=== PATIENT | male | born 1955 | race Caucasian/White ===

== ENCOUNTER 2018-12-22 22:20 | Inpatient (IN) ==
[2018-12-22] MEDS ORDERED: DiphenhydrAMINE HCL 50 MG/ML VIAL IV STA (22:42)
[2018-12-22] MEDS ORDERED: METOCLOPRAMIDE HCL INJ 5 MG/ML 2 ML VIAL IV STA (22:42)
[2018-12-22] MEDS ORDERED: SODIUM CHLORIDE 0.9% 1000ML 1,000 ML IV SCH (22:45)
[2018-12-22 23:10] LABS: Basophils # (auto) 0.01 K/uL (0-0.2); Eosinophils # (auto) 0.01 K/uL (0-0.5); Hematocrit (blood only) 46.7 % (42-52); Hemoglobin 16.6 g/dL (14.0-18.0); Immature Granulocytes # (auto) 0.08 K/uL (0.00-0.02); Immature Granulocytes % (auto) 0.4 %; Lymphocytes % (auto) 3.2 %; Mean Corpuscular Hgb Conc 35.5 g/dL (32-36); Mean Corpuscular Volume 87.9 fL (80-100); Mean Platelet Volume 10.3 fL (7.4-10.4); Monocytes # (auto) 0.97 K/uL (0.11-0.59); Monocytes % (auto) 4.5 %; Neutrophils % (auto) 91.9 %; Platelet Count 222 K/uL (130-400); RDW Coefficient of Variation 12.6 % (11.5-14.5); RDW Standard Deviation 40.3 fL (36.4-46.3); Red Blood Count 5.31 M/uL (4.7-6.1); White Blood Count 21.57 K/uL (4.8-10.8)
--- NOTE | 2018-12-22 23:13 | Emergency Department Note ---
History of Present Illness General Chief complaint: Abdominal Pain Stated complaint: STOMACH CRAMPS History of Present Illness Maximum Pain Intensity: 8 This 63-year-old presents to the ER complaining of abdominal pain with nausea and loose stool for the past few days Location: Abdomen Quality: Crampy Severity: Moderate Duration: Past few days Timing: Started a few days ago Context: Symptoms got worse and patient came in Modifying factors: better with nothing; worse with palpation Patient states he is also felt lightheaded and nearly passed out. He does not routinely see a doctor. He does smoke marijuana for his chronic back pain and has a marijuana medical card. Patient is not on well water. No recent antibiotics. Patient denies chest pain, dyspnea, cough, congestion, urinary symptoms. He does complain of subjective fever and chills. Home Medications Home Medications Medication Instructions Recorded Confirmed Type No Known Home Medications 12/22/18 12/22/18 History Allergies Allergy/AdvReac Type Severity Reaction Status Date / Time No Known Allergies Allergy Unverified 12/22/18 22:55 Past Med/Surg History Medical History Back pain Social History Feels Safe at Home: Yes Smoking Status: Former smoker Hx Substance Use: Yes substance use type: marijuana Review of Systems All systems reviewed & are unremarkable except as noted in HPI & below Physical Exam Vital Signs Vital Signs - 24 hr 12/22/18 22:34 12/22/18 23:01 12/22/18 23:13 Temperature 36.5 C Temperature Source Oral Sepsis Action Taken by Nursing No Action Required Pulse Rate 110 H Pulse Rate [Apical] 84 Respiratory Rate 20 18 Respiratory Effort / Characteristics Non-Labored Spontaneous Non-Labored Respiratory Depth Normal Normal Blood Pressure 116/78 Blood Pressure [Right Arm] 120/79 Blood Pressure Mean 90 Blood Pressure Mean [Right Arm] 92 Blood Pressure Position [Right Arm] Lying Pulse Oximetry 98 95 Oxygen Delivery Method Room Air Room Air Room Air VITALS: Vitals are noted on the nurse's note and reviewed by myself. Vital signs stable. GENERAL: White male, in no acute distress, nondiaphoretic, well-developed well- nourished. SKIN: The skin was without rashes, erythema, edema, or bruising. There is no tenting of the skin. Capillary reflex less than 2 seconds. HEAD: Normocephalic atraumatic. EARS: External auditory canals clear, tympanic membranes pearly mallory without erythema or effusion bilaterally. EYES: Pupils equal round and reactive to light and accommodation. Conjunctivae without injection, sclerae without icterus. Extraocular movements intact. NOSE: Patent, turbinates without inflammation or discharge. MOUTH: Mucous membranes moist. Pharynx without erythema or exudate. Uvula midline. Airway patent. Tongue does not deviate. NECK: Supple without nuchal rigidity. No lymphadenopathy. No thyromegaly. Cervical spine is nontender. No JVD. HEART: Regular rate and rhythm without murmurs gallops or rubs. LUNGS: Clear to auscultation bilaterally without wheezes, rales or rhonchi. No retractions or accessory muscle use. ABDOMEN: Positive bowel sounds x 4. Normal tympanic percussion. Soft, diffusely tender to palpation with increased pain in the lower abdomen, without masses or organomegaly. Powers sign negative. No guarding or rebound tenderness. No CVA tenderness MUSCULOSKELETAL: No muscle atrophy, erythema, or edema noted. NEURO: Patient was alert and oriented to person place and time. Normal sensation to light and sharp touch. No focal neurological deficits. Course Administered Medications Cefoxitin Sodium (Mefoxin) 2,000 mg in 60 mls @ 100 mls/hr IV NOW STA Stop: 12/23/18 00:58 Last Admin: 12/23/18 00:43 Dose: 100 mls/hr Documented by: [id number] Ioversol (Optiray 320 100ml) 93 ml IV ONCE PRN PRN Reason: Interaction Checking Stop: 12/26/18 23:33 Last Admin: 12/22/18 23:34 Dose: 1 ml Documented by: [id number] Discontinued Medications Diphenhydramine HCl (Benadryl) 25 mg IV NOW STA Stop: 12/22/18 22:43 Last Admin: 12/22/18 23:03 Dose: 25 mg Documented by: [id number] Sodium Chloride (Nss 1000ml) 1,000 mls @ 999 mls/hr IV .Q1H1M RAFAEL Stop: 12/22/18 23:45 Last Infusion: 12/23/18 00:43 Dose: 0 mls/hr Documented by: [id number] Admin: 12/22/18 23:03 Dose: 999 mls/hr Documented by: [id number] Metoclopramide HCl (Reglan) 10 mg IV NOW STA Stop: 12/22/18 22:43 Last Admin: 12/22/18 23:03 Dose: 10 mg Documented by: [id number] Medical Decision Making Medical Records Attestation: I reviewed the patient's medical records. Home Medications Current Medication List: was personally reviewed by me Laboratory Data Attestation: I reviewed the patient's lab results. Result diagrams: 12/22/18 22:56 12/22/18 22:56 Lab Results 12/22/18 12/22/18 Range/Units 22:56 22:56 WBC 21.57 H (4.8-10.8) K/uL RBC 5.31 (4.7-6.1) M/uL Hgb 16.6 (14.0-18.0) g/dL Hct 46.7 (42-52) % MCV 87.9 (80-100) fL MCH 31.3 (25-34) pg MCHC 35.5 (32-36) g/dL RDW Std Deviation 40.3 (36.4-46.3) fL RDW Coeff of [place] 12.6 (11.5-14.5) % Plt Count 222 (130-400) K/uL MPV 10.3 (7.4-10.4) fL Immature Gran % (Auto) 0.4 % Neut % (Auto) 91.9 % Lymph % (Auto) 3.2 % [place] % (Auto) 4.5 % Eos % (Auto) 0.0 % Baso % (Auto) 0.0 % Immature Gran # (Auto) 0.08 H (0.00-0.02) K/uL Neut # (Auto) 19.80 H (1.4-6.5) K/uL Lymph # (Auto) 0.70 L (1.2-3.4) K/uL [place] # (Auto) 0.97 H (0.11-0.59) K/uL Eos # (Auto) 0.01 (0-0.5) K/uL Baso # (Auto) 0.01 (0-0.2) K/uL Sodium 132 L (136-145) mmol/L Potassium 3.9 (3.5-5.1) mmol/L Chloride 99 (98-107) mmol/L Carbon Dioxide 23 (21-32) mmol/L Anion Gap 10.0 (3-11) BUN 31 H (7-18) mg/dl Creatinine 1.30 (0.6-1.4) mg/dl Est Cr Clr Drug Dosing 61.6 ml/min Est GFR ( Amer) 68.3 Est GFR (Non-Af Amer) 58.9 BUN/Creatinine Ratio 23.6 H (10-20) Glucose 141 H (70-99) mg/dl Calcium 10.0 (8.5-10.1) mg/dl Magnesium 2.3 (1.8-2.4) mg/dl Total Bilirubin 1.8 H (0.2-1) mg/dl AST 12 L (15-37) U/L ALT 20 (12-78) U/L Alkaline Phosphatase 84 (45-117) U/L Troponin I < 0.015 (0-0.045) ng/ml Total Protein 8.3 H (6.4-8.2) gm/dl Albumin 3.4 (3.4-5.0) gm/dl Globulin 4.9 H (2.5-4.0) gm/dl Albumin/Globulin Ratio 0.7 L (0.9-2) Lipase 51 L (73-393) U/L Imaging Data Attestation: I personally reviewed and interpreted this imaging study as follows: MDM Narrative Prior records/ancillary studies reviewed. Triage Nursing notes reviewed. The patient's history was concerning for abdominal pain. Differential diagnosis: Etiologies such as appendicitis, diverticulitis, PUD, biliary pathology, UTI, pancreatitis, obstruction, mesenteric ischemia, aortic pathology, infections, inflammatory bowel disease, renal colic, as well as others were entertained. Physical examination findings: As above. ER treatment provided: IV fluids, Reglan, Benadryl On reassessment the patient felt better. Diagnostics interpreted by me: ECG: Normal sinus, normal intervals, no acute ST-T wave changes. Impression normal sinus rhythm interpreted myself I think arrhythmia is unlikely. EKG shows normal sinus rhythm with no interval abnormalities such as QT prolongation or WPW. There are no findings to suggest B rugada syndrome. Cardiac monitoring in the emergency department reveals no tachycardic or bradycardic dysrhythmia. Hypertrophic cardiomyopathy was considered but there are no clear historical elements pointing toward this. EKG is not suggestive. The QRS voltage is not extremely large and there are no suggestive Q waves. The labs revealed leukocytosis, hyperglycemia without DKA Imaging studies: CT ABDOMEN & PELVIS With Contrast: Acute appendicitis. Appendix measures greater than 1 cm. No free fluid, free air, or abscess. Dilated small bowel with air-fluid levels. Distal small bowel and colon are decompressed. Cannot exclude small bowel obstruction. Radiologist: Osman Schroeder MD Chest x-ray with no acute consolidation, pneumothorax or free air per my interpretation Consultation: A consultation was placed with the Dr. Crowe. The case was discussed and diagnostics were reviewed. The patient was evaluated in the ER for further treatment. Exam and history seem consistent with acute appendicitis. Patient started antibiotics. Surgery was consulted. Patient agrees to treatment plan of admission. Patient placed n.p.o. By the evaluation outlined above emergent etiologies such as diverticulitis, PUD, biliary pathology, UTI, pancreatitis, obstruction, mesenteric ischemia, aortic pathology, inflammatory bowel disease, renal colic, as well as others were deemed relatively unlikely. The pt informed about the findings as listed above. All questions were answered and pleased with the treatment. Case reviewed with my attending The chart was completed utilizing [email or web address] Speech voice recognition software. Grammatical errors, random word insertions, pronoun errors, and incomplete sentences are an occassional consequence of this system due to software limit ations, ambient noise, and hardware issues. Any formal questions or concerns about the content, text, or information contained within the body of this dictation should be directly addressed to the physician cleaner assistant for clarification. Impression & Plan Acute appendicitis Discharge Plan Visit Data Chief Complaint: Abdominal Pain Stated Complaint: STOMACH CRAMPS ED Provider: Tre Jaffe ED Midlevel Provider: Jazzmine Rodríguez Discharge Problem: Acute appendicitis Patient Disposition: Being Evaluated by Surgeon Condition: Fair Forms Stand Alone Forms: Call Back Authorization, [facility] [employer] Prescriptions Prescriptions: No Action No Known Home Medications RF: 0 Referrals Referrals: PCP,NO [Primary Care Provider] - Discharge Problem: Acute appendicitis Qualifiers: Acute appendicitis type: with generalized peritonitis Appendicitis gangrene presence: unspecified whether gangrene present Appendicitis perforation presence: unspecified whether perforation present Appendicitis abscess presence: unspecified whether abscess present Qualified Code(s): K35.20 - Acute appendicitis with generalized peritonitis, without abscess
[2018-12-22 23:30] LABS: Alanine Aminotransferase 20 U/L (12-78); Albumin Level 3.4 gm/dl (3.4-5.0); Aspartate Aminotransferase 12 U/L (15-37); BUN Creatinine Ratio 23.6 (10-20); Blood Urea Nitrogen 31 mg/dl (7-18); Carbon Dioxide 23 mmol/L (21-32); Chloride 99 mmol/L (98-107); Creatinine Clr Calc Pharmacy 61.6 ml/min; Est GFR (African American) 68.3; Est GFR (Non-African American) 58.9; Glucose 141 mg/dl (70-99); Magnesium 2.3 mg/dl (1.8-2.4); Potassium 3.9 mmol/L (3.5-5.1); Sodium 132 mmol/L (136-145)
[2018-12-22 23:34] LABS: Albumin Globulin Ratio 0.7 (0.9-2); Alkaline Phosphatase 84 U/L (45-117); Bilirubin,Total 1.8 mg/dl (0.2-1); Globulin 4.9 gm/dl (2.5-4.0); Total Protein 8.3 gm/dl (6.4-8.2); Troponin I < 0.015 ng/ml (0-0.045)
[2018-12-22] MEDS ORDERED: IOVERSOL 100ml IV PRN (23:34)
[2018-12-23] MEDS ORDERED: cefOXitin 2,000 MG/60 ML BAG IV STA (00:23)
--- NOTE | 2018-12-23 00:51 | History & Physical Report ---
Date of Service December 23, 2018 Assessment & Plan (1) Acute appendicitis: Patient with acute appendicitis. Discussed laparoscopic appendectomy Possible open appendectomy with the patient he does understand and does Wish to proceed. Acute appendicitis type: with generalized peritonitis Appendicitis abscess presence: unspecified whether abscess present Appendicitis gangrene presence: unspecified whether gangrene present Appendicitis perforation presence: unspecified whether perforation present Qualified Code(s): K35.20 - Acute appendicitis with generalized peritonitis, without abscess History of Present Illness Primary Care Provider: NO PCP Patient is a 63-year-old male presenting to the emergency room with abdominal pain. Is found with an elevated white blood cell count of 21,000 and CAT scan evidence Of acute appendicitis. Does not appear to have ruptured or show evidence of an abscess. Allergies Allergy/AdvReac Type Severity Reaction Status Date / Time No Known Allergies Allergy Unverified 12/22/18 22:55 Home Medications Home Medications Medication Instructions Recorded Confirmed Type No Known Home Medications 12/22/18 12/22/18 History Past Med/Surg History Medical History Back pain Social History Feels Safe at Home: Yes Smoking Status: Former smoker Hx Substance Use: Yes substance use type: marijuana Review of Systems All systems reviewed & are unremarkable except as noted in HPI & below Physical Exam Vital Signs (Past 24 Hours): Last Vital Signs Temp 36.5 C 12/22/18 22:34 Pulse 84 12/22/18 23:13 Resp 18 12/22/18 23:13 BP 120/79 12/22/18 23:13 Pulse Ox 95 12/22/18 23:13 His head is atraumatic conjunctiva are anicteric neck is supple his skin shows no rashes he has no evidence of respiratory distress his heart shows regular rate and rhythm. His abdomen is soft with right lower quadrant tenderness to palpation. His extremities are warm and well-perfused. Results & Data Diagnostic Findings I have reviewed his CAT scan
[2018-12-23] MEDS ORDERED: HYDROmorphone INJ 2 MG/ML SYR/VIAL IV PRN (01:41)
[2018-12-23] MEDS ORDERED: fentaNYL citrate 100 MCG/2 ML VIAL IV PRN (01:41)
[2018-12-23] MEDS ORDERED: ePHEDrine sulfate 50 MG/ML AMP IV PRN (01:41)
[2018-12-23] MEDS ORDERED: PROMETHAZINE HCL 6.25 MG in SODIUM CHLORIDE 0.9% 50 ML IV PRN (01:41)
[2018-12-23] MEDS ORDERED: ONDANSETRON INJ 2 MG/ML 2 ML VIAL IV PRN ×2 (01:41→04:21)
[2018-12-23] MEDS ORDERED: ATROPINE SULFATE 0.1 MG/ML 10ML SYR IV PRN (01:41)
[2018-12-23] MEDS ORDERED: BUPIVACAINE 0.5 % 5 MG/1 ML MPF 30ML VIAL ONE (01:49)
--- NOTE | 2018-12-23 01:51 | Anesthesiology Consultation ---
Date of Service December 23, 2018 Assessment & Plan (1) Encounter for pre-operative examination: Chart Review Chart Review: Acceptable Risk for Surgery and Patient NOT seen in Pre Admission Testing Consults Requested none ASA [id number] Proposed Anesthesia Anesthesia Type: General Risk / Benefits Reviewed With: PT / POA / Parent / Guardian, Accepts Plan and In formed Consent Obtained History Surgery Operation Date: 12/23/18 02:00 Proposed Procedures p Laparoscopic Appendectomy(Not Applicable) - Paulie Crowe MD, FACS Height/Weight Height: 5 ft 10 in Weight: 78.6 kg Allergies Allergy/AdvReac Type Severity Reaction Status Date / Time No Known Allergies Allergy Unverified 12/22/18 22:55 Medications Home Medications Medication Instructions Recorded Confirmed Last Taken No Known Home Medications 12/22/18 12/22/18 Unknown Active Medications Generic Name Dose Route Start Last Admin Trade Name Freq PRN Reason Stop Dose Admin Ioversol 93 ml 12/22/18 23:34 12/22/18 23:34 Optiray 320 100ml IV 12/26/18 23:33 1 ml ONCE PRN Administration Interaction Checking NPO Date Last Intake of Fluids: 12/22/18 Time Last Intake of Fluids: 18:00 Date Last Intake of Solids: 12/21/10 Time Last Intake of Solids: 12:00 Past Medical History Medical History Back pain Exercise / Class Metabolic Activity II 4-5 Yardwork/Stairs/Walk up hill Past Anesthesia History No Hx of Anesthesia Complications and No Family Hx of Anesthesia Complications History of PONV No Hx of PONV and No Hx of Motion Sickness Social History Smoking Status: Former smoker Hx Substance Use: Yes substance use type: marijuana Physical Exam Vital Signs Last Vital Signs Temp 36.5 C 12/22/18 22:34 Pulse 82 12/23/18 01:37 Resp 20 12/23/18 01:37 BP 119/78 12/23/18 01:37 Pulse Ox 97 12/23/18 01:37 ENMT Mouth: no dentition abnormality Thyromental Distance: > or= 3.5 Finger Breadths Mallampati Class: II Neck normal visual inspection Respiratory normal respiratory effort Auscultation: lungs clear to auscultation bilaterally Cardiovascular Rate/Rhythm: regular rate and regular rhythm Psychiatric Orientation: alert Testing Electrocardiogram Date: 12/22/18 Findings: + NSR @ (82) Chest X-Ray Date: 12/22/18 Findings: + NAD Laboratory Results 12/22/18 22:56 12/22/18 22:56
[2018-12-23] MEDS ORDERED: fentaNYL citrate 100 MCG/2 ML VIAL ONE (01:59)
[2018-12-23 02:12] LABS: Appearance Urine Clear (Clear); Bacteria Urine Automated Negative (Negative); Bilirubin Urine Negative (Negative); Blood Urine Negative (Negative); Color Urine Yellow; Epithelial Cell Urine Auto 20-30 /lpf (0-5); Glucose Urine UA Negative (Negative); Ketones Urine 1+ (Negative); Leukocyte Esterase Urine Negative (Negative); Nitrite Urine Negative (Negative); Protein Urine 1+ (Negative); RBC Urine Automated 0-4 /hpf (0-4); Specific Gravity Urine > 1.045 (1.000-1.030); Urobilinogen Urine Negative (Negative)
[2018-12-23 02:22] LABS: Mucus Urine Present (None Prsent)
[2018-12-23] MEDS ORDERED: MoRPHine SULFATE PF 1 MG/ML 10 ML AMP/VIAL ONE (02:32)
[2018-12-23] MEDS ORDERED: LIDOCAINE HCL 2% 2 ML VIAL/AMP(20MG/ML) INFIL ONE (02:37)
[2018-12-23] MEDS ORDERED: KETOROLAC 30 MG/ML VIAL ONE (02:37)
[2018-12-23] MEDS ORDERED: DEXAMETHASONE SOD INJ 4 MG/ML VIAL ONE (02:37)
[2018-12-23] MEDS ORDERED: GLYCOPYRROLATE 0.2 MG/ML VIAL ONE (02:37)
[2018-12-23] MEDS ORDERED: SUCCINYLCHOLINE CHLORIDE 20 MG/ML 10 ML VIAL ONE (02:37)
[2018-12-23] MEDS ORDERED: PROPOFOL IV EMULSION 10 MG/ML 20 ML VIAL IV ONE (02:37)
[2018-12-23] MEDS ORDERED: NEOSTIGMINE METHYLSULFATE 5 MG/5 ML SYR ONE (02:37)
[2018-12-23 03:16] LABS: Amphetamines+Metham, Urine Neg (Neg); Barbiturates, Urine Neg (Neg); Benzodiazepine, Urine Neg (Neg); Cocaine, Urine Neg (Neg); MDMA (Ecstacy), Urine Neg (Neg); Methadone, Urine Neg (Neg); Opiate, Urine Neg (Neg); Phencyclidine, Urine Neg (Neg)
--- NOTE | 2018-12-23 03:21 | Operative Report ---
Post Operative Report Pre & Post Diagnosis Operation Date: 12/23/18 02:00 Pre-Op Diagnosis: Acute Appendicitis Post-Op Diagnosis: Acute Appendicitis, Ruptured Appendix with abscess Procedure Operation Date: 12/23/18 02:00 Actual Procedures p Laparoscopy, Open Appendectomy(Not Applicable) - Paulie Crowe MD, FACS drainage intraabd abscess Surgeon Paulie Crowe MD, FACS Speech Language Pathologist Travel nurses Estimated Blood Loss 20 Findings Consistent with Post-Op Diagnosis Specimens appendix Description of Procedure see dictation I attest to the content of the Intraoperative Record and any orders documented therein. Any exceptions are noted below.
[2018-12-23] MEDS ORDERED: ACETAMINOPHEN 1,000 MG/100 ML VIAL IV ONE (03:23)
[2018-12-23] MEDS ORDERED: ONDANSETRON INJ 2 MG/ML 2 ML VIAL ONE (03:33)
[2018-12-23] MEDS ORDERED: ACETAMINOPHEN 1000 MG/100 ML IV IV ONE (03:43)
--- NOTE | 2018-12-23 03:56 | Anesthesiology Progress Note ---
Date of Service December 23, 2018 Anesthesia Post Procedure Vital Signs Vital Signs: Temp Pulse Pulse Resp BP BP Pulse Ox 12/23/18 03:50 97 H 18 134/82 97 12/23/18 03:41 78 18 140/85 99 12/23/18 03:31 36.4 C L 84 18 145/79 H 96 12/23/18 01:37 82 20 119/78 97 12/23/18 00:38 84 21 121/78 97 12/22/18 23:13 84 18 120/79 95 12/22/18 22:34 36.5 C 110 H 20 116/78 98 Transfer of Care Handoff Completed per policy Notes Mental Status: alert / awake / arousable Patient Amnestic to Procedure: Yes Nausea / Vomiting: adequately controlled Pain: adequately controlled Airway Patency, RR, SpO2: stable & adequate BP & HR: stable & adequate Hydration State: stable & adequate Anesthetic Complications: no major complications apparent
[2018-12-23] MEDS ORDERED: PIPERACILL/TAZOBAC CONSULT ACTIVE PRN (04:21)
[2018-12-23] MEDS ORDERED: PROMETHAZINE HCL 25 MG in SODIUM CHLORIDE 0.9% 50 ML IV PRN (04:21)
[2018-12-23] MEDS ORDERED: HYDROmorphone INJ 1 MG/ML SYRINGE IV PRN (04:21)
[2018-12-23] MEDS ORDERED: PROMETHAZINE HCL 12.5 MG in SODIUM CHLORIDE 0.9% 50 ML IV PRN (04:21)
[2018-12-23] MEDS ORDERED: PIPERACILLIN/TAZOBACTAM 3.375 GM in DEXTROSE 5% 100 ML IV ONE (04:30)
--- NOTE | 2018-12-23 04:41 | Operative Report ---
DATE OF OPERATION: 12/23/2018 NAME OF OPERATION: Laparoscopy with open appendectomy and drainage of intraabdominal abscess. STAFF SURGEON: Paulie Crowe MD PREOPERATIVE DIAGNOSIS: Acute appendicitis. POSTOPERATIVE DIAGNOSIS: Ruptured appendix with intra-abdominal abscess. ANESTHESIA: General. DESCRIPTION OF PROCEDURE: The patient was brought in the operating room and placed on the operating table in supine position. His abdomen was prepped and draped in the usual fashion. 0.5% plain Marcaine was used to anesthetize all incisions. Initially, incision was made above the umbilicus, carrying dissection down, placing a Veress needle producing pneumoperitoneum, placing an 11 mm port under visualization. The patient had adhesions of the omentum and small bowel to the anterior abdominal wall in the right lower quadrant. Under visualization, a 5 mm port was placed suprapubically and then a 12 mm port placed in the left lower quadrant. At this point, using blunt dissectors, I was able to take the small bowel away from the anterior abdominal wall. It was apparent that the patient had ruptured his appendix with an abscess. I did evacuate this, on exploration, the small bowel was extremely adherent over the area as well as the cecum. I did not feel it was safe to attempt removal of the appendix at this point. Therefore, we converted to open, right lower quadrant incision made, carrying dissection down into the abdomen, identifying the loops of small bowel which had an exudate from the ruptured appendix. These were freed and then the cecum mobilized. The appendix had ruptured near the base of the cecum and then the appendix was severely adherent to the retroperitoneum with an abscess. This was all evacuated. The appendix was dissected free with some difficulty. The base was oversewn using 0 chromic suture and then the mesoappendix oversewn using 0 chromic suture. It was difficult to identify the mesoappendix because of the inflammation and the rupture. The site was irrigated with antibiotic solution as well as the pelvis. A 15 round Brown-Viveros drain was placed into the right lower quadrant down into the pelvis, secured using 3-0 nylon suture. The posterior fascia and peritoneum reapproximated using 0 chromic suture. The anterior fascia reapproximated using #1 PDS suture. Subcutaneous tissue irrigated. Quarter-inch [place] drain placed, secured to the skin using 4-0 nylon suture. Skin loosely reapproximated using 4-0 nylon suture. The 11 mm port site and 12 mm port site fascia closed using 0 Vicryl suture. Skin reapproximated all sites using subcuticular 4-0 Monocryl with Steri-Strips applied. Dressings applied and the patient transferred to the recovery room in stable condition. I attest to the content of the Intraoperative Record and any orders documented therein. Any exception s are noted below.
[2018-12-23] MEDS: NSS + 20MEQ KCL 20 MEQ/1,000 ML BAG IV SCH ×2 (04:48→14:11)
[2018-12-23] MEDS ORDERED: PIPERACILLIN/TAZOBACTAM 3.375 GM in DEXTROSE 5% 100 ML IV SCH (06:00)
--- NOTE | 2018-12-23 06:08 | XRay Report ---
XR chest 1V portable CLINICAL HISTORY: Epigastric pain COMPARISON STUDY: No previous studies for comparison. FINDINGS: The heart is at the upper limits of normal in size. There is mild aortic tortuosity. There is no lobar consolidation. There is no overt failure. There is mild basilar interstitial thickening. There are no pleural effusions. There is no free intraperitoneal air.[ IMPRESSION: No active disease in the chest. Electronically signed by: Epi Ponce M.D. 12/23/2018 6:07 AM
--- NOTE | 2018-12-23 06:43 | CT Scan Report ---
CT abd pelvis IV con only CLINICAL HISTORY: Lower abdominal pain COMPARISON STUDY: None. TECHNIQUE: The patient was scanned in a dynamic helical fashion during intravenous administration of 93 cc Optiray 320. A dose lowering technique was utilized adhering to the principles of ALARA. CT DOSE: 398.63 mGy.cm FINDINGS: Lower chest: There are mild dependent atelectatic changes. Liver: The contrast-enhanced liver is normal in size, contour, and attenuation. There is no intrahepa tic biliary ductal dilatation. The hepatic veins and portal veins are patent. Gallbladder: Unremarkable. Spleen: Normal in size and attenuation. Pancreas: Unremarkable. Adrenal glands: Unremarkable. Kidneys: There is symmetric renal cortical enhancement. The kidneys are normal in size without hydron ephrosis. Bowel: There are multiple fluid-filled dilated small bowel loops. There is mild small bowel wall thic kening in the distal ileal region. There is a dilated fluid-filled appendix. There is surrounding inf iltration of the periappendiceal fat. There is a 3 cm pericecal fluid collection containing an air-fl uid level likely representing a small abscess. Peritoneum: There is no significant ascites. There is no free intraperitoneal air. Vasculature: The abdominal aorta is normal in course and caliber. Adenopathy: None. Pelvic viscera: The bladder, and pelvic viscera are unremarkable. Skeletal structures: No destructive osseous lesions are seen. IMPRESSION: 1. Right lower quadrant inflammatory process with a dilated fluid-filled appendix and periappendiceal stranding. In addition there is distal ileal wall thickening. There is a suspected small pericecal a bscess. 2. Dilated fluid-filled small bowel loops consistent with a mild small bowel obstruction 3. The right lower quadrant inflammatory process, likely represents acute appendicitis with a perfora tion. Inflammatory bowel disease with an associated abscess and secondary appendiceal involvement is also within differential but is considered less likely. Electronically signed by: Epi Ponce M.D. 12/23/2018 6:42 AM
[2018-12-23] MEDS: PIPERACILLIN/TAZOBACTAM 3.375 GM in DEXTROSE 5% 100 ML IV SCH ×2 (10:43→18:47)
[2018-12-24] MEDS: NSS + 20MEQ KCL 20 MEQ/1,000 ML BAG IV SCH ×2 (00:06→11:34)
[2018-12-24] MEDS: PIPERACILLIN/TAZOBACTAM 3.375 GM in DEXTROSE 5% 100 ML IV SCH ×3 (01:54→17:36)
[2018-12-24 06:19] LABS: Hematocrit (blood only) 37.6 % (42-52); Hemoglobin 13.2 g/dL (14.0-18.0); Mean Corpuscular Hgb Conc 35.1 g/dL (32-36); Mean Corpuscular Volume 88.7 fL (80-100); Mean Platelet Volume 9.3 fL (7.4-10.4); Platelet Count 222 K/uL (130-400); RDW Coefficient of Variation 12.7 % (11.5-14.5); Red Blood Count 4.24 M/uL (4.7-6.1); White Blood Count 11.93 K/uL (4.8-10.8)
[2018-12-24 06:20] LABS: Eosinophils # (auto) 0.07 K/uL (0-0.5); Eosinophils % (auto) 0.6 %; Immature Granulocytes # (auto) 0.02 K/uL (0.00-0.02); Immature Granulocytes % (auto) 0.2 %; Lymphocytes # (auto) 1.16 K/uL (1.2-3.4); Lymphocytes % (auto) 9.7 %; Monocytes % (auto) 8.4 %; Neutrophils # (auto) 9.68 K/uL (1.4-6.5); Neutrophils % (auto) 81.1 %
[2018-12-24 06:32] LABS: Albumin Level 2.4 gm/dl (3.4-5.0); BUN Creatinine Ratio 20.1 (10-20); Calcium 8.7 mg/dl (8.5-10.1); Creatinine Clr Calc Pharmacy 74.9 ml/min; Est GFR (African American) 86.4; Est GFR (Non-African American) 74.5; Potassium 4.1 mmol/L (3.5-5.1)
[2018-12-24 06:38] LABS: Albumin Globulin Ratio 0.6 (0.9-2); Bilirubin,Total 0.8 mg/dl (0.2-1); Phosphorus 1.7 mg/dl (2.5-4.9); Total Protein 6.4 gm/dl (6.4-8.2)
[2018-12-24] MEDS: HYDROmorphone INJ 0.5 MG/0.5 ML SYR IV PRN ×2 (08:18→14:02)
--- NOTE | 2018-12-24 09:31 | Progress Note ---
Date of Service December 24, 2018 Assessment & Plan (1) Ruptured appendix: cont IV atbx, clear liquids- adv for lunch monitor GI function will need at least 1-2 more days Subjective vitals stable- min GI function Physical Exam Physical Exam: mild-mod distention- decreased bowel sounds incisions intact Results & Data Vital Signs (Past 12 Hours) Vital Signs Temp Pulse Pulse Resp BP Pulse Ox 12/24/18 07:46 37 C 70 20 148/86 H 95 12/24/18 03:29 37.0 C 66 16 148/84 H 95 12/23/18 23:52 37.2 C 61 16 126/78 94
[2018-12-24] MEDS ORDERED: SODIUM CHLORIDE 0.9% IV ONE (09:45)
[2018-12-24] MEDS ORDERED: SODIUM PHOSPHATE IV ONE (09:45)
[2018-12-24] MEDS: DOCUSATE SODIUM/SENNA 50/8.6MG TAB PO SCH ×2 (10:18→20:27)
[2018-12-24] MEDS ORDERED: NITROGLYCERIN SL 0.4 MG/TAB TAB SL PRN (15:09)
--- NOTE | 2018-12-24 15:10 | Consultation ---
Date of Consultation December 24, 2018 Assessment & Plan (1) Chest pain: transient, lasts only a few seconds, not long enough to get EKG when he has the pain ambulated in the hallway, no chest pain or pressure on exertion he describes as a "gas like pain" never had it as outpatient no personal or family history of CAD, non smoker EKG was normal on admission, repeat this afternoon was normal sinus, no ischemic changes troponin negative doubt that this is cardiac pain will repeat EKG as needed, repeat troponin okay to stay on medical floor (2) Ruptured appendix: (3) Acute appendicitis: History of Present Illness Requesting Physician: Dr. Crowe Reason for Consultation: chest pain Attending Physician: Paulie Crowe MD, [facility] History of Present Illness 63 yo male admitted on 12/23 for acute appendicitis, presented with acute abdomen, signs of peritonitis. CT showed acute appendicitis and WBC markedly elevated. Taken to the OR emergently with Dr. Crowe. Found to have ruptured appendix with abscess. Converted to open procedure, abscess drained, drain placed, appendix removed. Tolerated well. On 12/24 the patient noticed some mild, intermittent chest pain. Would only last a few seconds. Was not really associated with any type of active, sitting or standing or laying down. Never had this type of pain before. He was able to ambulate in the hallway, no chest pain or dyspnea. He has no history of CAD, no family history of CAD or stroke to the patient's knowledge. Non-smoker and no other medical history. Reviewed EKG from admission, normal sinus, no ischemia. Repeated EKG in the afternoon on 12/24, no ischemic changes. Troponin negative. Low suspicion for ACS. Allergies Allergy/AdvReac Type Severity Reaction Status Date / Time No Known Allergies Allergy Unverified 12/22/18 22:55 Home Medications Home Medications Medication Instructions Recorded Confirmed Type No Known Home Medications 12/22/18 12/22/18 History Patient History Medical History Back pain No significant past medical history Family History Other No significant family history Social History Preferred Language: Sinhala Communication Ability: Effective Mate Fourth Required: No Beliefs That Will Affect Care: None Current Living Situation: Family Other Information That Helps Us Care for You: No Feels Safe at Home: Yes Safety Concerns: Feels Safe At This Time Smoking Status: Former smoker Do You Dip or Chew Tobacco: No Second Hand Exposure: No Tobacco Cessation Education Requested by Patient: No Hx Alcohol Use: Yes Alcohol type: beer and wine Hx Substance Use: Yes substance use type: marijuana Last Used Substance: Days (ago) Review of Systems Review of Systems: All systems reviewed & are unremarkable except as noted in HPI & below Cardiovascular: + chest pain (mild, intermittent, across whole chest like a wa ve) Gastrointestinal: + abdominal pain (RLQ, from surgery) and + constipation; no nausea, no vomiting and no diarrhea/loose stools Results & Data Vital Signs (Past 12 Hours) Vital Signs Temp Pulse Pulse Resp BP BP Pulse Ox 12/24/18 14:16 65 144/83 H 12/24/18 11:50 36.5 C 60 20 140/84 95 12/24/18 07:46 37 C 70 20 148/86 H 95 12/24/18 03:29 37.0 C 66 16 148/84 H 95 Laboratory Results Troponin negative ECG Indication: chest pain Rhythm: normal sinus Findings: no acute ischemic change (1) Acute appendicitis Acute appendicitis type: with generalized peritonitis Appendicitis abscess presence: unspecified whether abscess present Appendicitis gangrene presence: unspecified whether gangrene present Appendicitis perforation presence: unspecified whether perforation present Qualified Code(s): K35.20 - Acute appendicitis with generalized peritonitis, without abscess
[2018-12-24] MEDS ORDERED: ALUMINUM/MAGNESIUM SUSP 30 ML UDC PO PRN (21:13)
[2018-12-25] MEDS: PIPERACILLIN/TAZOBACTAM 3.375 GM in DEXTROSE 5% 100 ML IV SCH ×3 (02:05→17:49)
[2018-12-25] MEDS: NSS + 20MEQ KCL 20 MEQ/1,000 ML BAG IV SCH (06:09)
[2018-12-25] MEDS ORDERED: HYDROCODONE/ACETAMOPHEN 5/325MG TAB PO PRN (06:11)
--- NOTE | 2018-12-25 06:11 | Progress Note ---
Date of Service December 25, 2018 Assessment & Plan (1) Ruptured appendix: Appreciate Dr Martinez' help- pt with some GI function no chest pain- was likely from gas- try low fiber diet cont IV, Atbx- check labs- Mg/Phos Subjective feels better after passing flatus and bm-loose- expected no emesis Physical Exam Physical Exam: some distention Results & Data Vital Signs (Past 12 Hours) Vital Signs Temp Pulse Resp BP Pulse Ox 12/24/18 23:00 36.9 C 75 14 134/75 96
[2018-12-25 06:48] LABS: Basophils # (auto) 0.01 K/uL (0-0.2); Basophils % (auto) 0.1 %; Eosinophils % (auto) 2.3 %; Hematocrit (blood only) 37.4 % (42-52); Hemoglobin 12.8 g/dL (14.0-18.0); Immature Granulocytes # (auto) 0.02 K/uL (0.00-0.02); Immature Granulocytes % (auto) 0.2 %; Lymphocytes # (auto) 1.24 K/uL (1.2-3.4); Lymphocytes % (auto) 14.3 %; Mean Corpuscular Hgb Conc 34.2 g/dL (32-36); Mean Platelet Volume 9.6 fL (7.4-10.4); Monocytes # (auto) 0.86 K/uL (0.11-0.59); Monocytes % (auto) 9.9 %; Neutrophils # (auto) 6.34 K/uL (1.4-6.5); Neutrophils % (auto) 73.2 %; Platelet Count 239 K/uL (130-400); RDW Coefficient of Variation 12.7 % (11.5-14.5); RDW Standard Deviation 40.7 fL (36.4-46.3); White Blood Count 8.67 K/uL (4.8-10.8)
[2018-12-25 07:22] LABS: BUN Creatinine Ratio 17.9 (10-20); Blood Urea Nitrogen 17 mg/dl (7-18); Calcium 8.7 mg/dl (8.5-10.1); Carbon Dioxide 24 mmol/L (21-32); Chloride 107 mmol/L (98-107); Creatinine Clr Calc Pharmacy 86.1 ml/min; Est GFR (African American) 102.3; Est GFR (Non-African American) 88.3; Glucose 91 mg/dl (70-99); Potassium 3.9 mmol/L (3.5-5.1); Sodium 138 mmol/L (136-145)
[2018-12-25 07:32] LABS: Phosphorus 2.5 mg/dl (2.5-4.9); Troponin I < 0.015 ng/ml (0-0.045)
[2018-12-25] MEDS: DOCUSATE SODIUM/SENNA 50/8.6MG TAB PO SCH ×2 (08:42→20:52)
[2018-12-25] MEDS: HYDROCODONE/ACETAMOPHEN 5/325MG TAB PO PRN (16:34)
--- NOTE | 2018-12-25 17:18 | Hospitalist Progress Note ---
Date of Service December 25, 2018 Assessment & Plan (1) Chest pain: transient, lasts only a few seconds, not long enough to get EKG when he has the pain ambulated in the hallway, no chest pain or pressure on exertion he describes as a "gas like pain" never had it as outpatient no personal or family history of CAD, non smoker EKG was normal on admission, repeat on 12/24 was normal sinus, no ischemic changes troponin negative x 2 sets no further chest pain doubt that this is cardiac pain will sign off at this time, safe for d/c from medical perspective (2) Ruptured appendix: improved bowel function, advancing diet continue on Zosyn per surgery d/c per surgery (3) Acute appendicitis: Subjective no chest pain since yesterday afternoon vitals stable repeat troponin negative this morning tolerating diet, moved bowels, no fever labs stable, WBC normal at 8k Review of Systems Review of Systems: All systems reviewed & are unremarkable except as noted in HPI & below Gastrointestinal: as per Subjective / HPI Physical Exam Constitutional: WD/WN, vitals as above Eyes: PERRL, conjunctivae normal, anicteric sclerae ENMT: external ear and nose normal, oropharynx normal Neck: trachea midline, no thyromegaly Respiratory: normal respiratory effort, lungs clear to auscultation Cardiovascular: RRR, no murmur, no edema Gastrointestinal (Abdomen): Inspection/Auscultation: abdomen normal to inspection and normal bowel sounds; abdomen not distended Percussion/Palpation: + abdomen tender (RLQ, minimal) and abdomen soft; no guarding and abdomen not rigid Musculoskeletal: no cyanosis or clubbing, extremities motor strength 5/5 Skin: no rashes, warm and dry Neurologic: patellar DTR's 2+ bilat, sensation intact and PERRL, EOMI, accommodation nl, no face palsy, no dysarthria Psychiatric: A+Ox3, euthymic affect Lymphatic: no cervical or axillary lymphadenopathy Results & Data Vital Signs (Past 12 Hours) Vital Signs Temp Pulse Resp BP Pulse Ox 12/25/18 15:08 37.0 C 69 18 134/75 97 12/25/18 07:29 37 C 63 18 143/74 H 96 Laboratory Results Laboratory Results - last 24 hr 12/25/18 12/25/18 06:28 06:28 WBC 8.67 RBC 4.20 L Hgb 12.8 L Hct 37.4 L MCV 89.0 MCH 30.5 MCHC 34.2 RDW Std Deviation 40.7 RDW Coeff of [place] 12.7 Plt Count 239 MPV 9.6 Immature Gran % (Auto) 0.2 Neut % (Auto) 73.2 Lymph % (Auto) 14.3 [place] % (Auto) 9.9 Eos % (Auto) 2.3 Baso % (Auto) 0.1 Immature Gran # (Auto) 0.02 Neut # (Auto) 6.34 Lymph # (Auto) 1.24 [place] # (Auto) 0.86 H Eos # (Auto) 0.20 Baso # (Auto) 0.01 Sodium 138 Potassium 3.9 Chloride 107 Carbon Dioxide 24 Anion Gap 7.0 BUN 17 Creatinine 0.93 Est Cr Clr Drug Dosing 86.1 Est GFR ( Amer) 102.3 Est GFR (Non-Af Amer) 88.3 BUN/Creatinine Ratio 17.9 Glucose 91 Calcium 8.7 Phosphorus 2.5 Magnesium 2.0 Troponin I < 0.015 Medications Administered Current Inpatient Medications Hydrocodone Bitart/Acetaminophen ([place] 5/325) 1 tab PO 3XDQ4 PRN PRN Reason: Pain Stop: 01/08/19 06:10 Last Admin: 12/25/18 16:34 Dose: 1 tab Documented by: Hydrocodone Bitart/Acetaminophen ([place] 5/325) 2 tab PO 3XDQ4 PRN PRN Reason: Pain Stop: 01/08/19 06:10 Al Hydrox/Mg Hydrox/Simethicone (Maalox) 15 ml PO Q6H PRN PRN Reason: Indigestion Stop: 01/23/19 21:12 Last Admin: 12/24/18 21:42 Dose: 15 ml Documented by: Hydromorphone HCl (Dilaudid) 0.5 mg IV Q3HWA PRN PRN Reason: Pain Stop: 01/06/19 04:20 Last Admin: 12/24/18 14:02 Dose: 0.5 mg Documented by: Hydromorphone HCl (Dilaudid) 1 mg IV Q3HWA PRN PRN Reason: Pain Stop: 01/06/19 04:20 Potassium Chloride/Sodium Chloride (Normal Saline W/20 Meq Kcl) 20 meq in 1,000 mls @ 50 mls/hr IV .Q20H RAFAEL Stop: 01/22/19 04:20 Last Infusion: 12/25/18 14:13 Dose: 50 mls/hr Documented by: Promethazine HCl 12.5 mg/ (Sodium Chloride) 50.5 mls @ 204 mls/hr IV Q6H PRN PRN Reason: Nausea And Vomiting Stop: 01/22/19 04:20 Promethazine HCl 25 mg/ Sodium (Chloride) 51 mls @ 204 mls/hr IV Q6H PRN PRN Reason: Nausea And Vomiting Stop: 01/22/19 04:20 Piperacillin Sod/Tazobactam (Sod 3.375 gm/ Dextrose) 115 mls @ 28.75 mls/hr IV Q8H RAFAEL; Protocol Stop: 01/02/19 09:59 Last Infusion: 12/25/18 13:50 Dose: Infused Documented by: Miscellaneous Information (Consult) 1 ea N/A UD PRN PRN Reason: Consult Stop: 01/22/19 04:20 Nitroglycerin (Nitrostat) 0.4 mg SL Q4 PRN PRN Reason: Chest Pain Stop: 01/23/19 15:08 Ondansetron HCl (Zofran) 4 mg IV 4XDQ4H PRN PRN Reason: Nausea Stop: 01/22/19 04:20 Last Admin: 12/23/18 18:49 Dose: 4 mg Documented by: Senna/Docusate Sodium (Senokot S) 1 tab PO BID RAFAEL Stop: 01/23/19 09:59 Last Admin: 12/25/18 08:42 Dose: Not Given Documented by: (1) Acute appendicitis Acute appendicitis type: with generalized peritonitis Appendicitis abscess presence: unspecified whether abscess present Appendicitis gangrene presence: unspecified whether gangrene present Appendicitis perforation presence: unspecified whether perforation present Qualified Code(s): K35.20 - Acute appendicitis with generalized peritonitis, without abscess
[2018-12-26] MEDS: NSS + 20MEQ KCL 20 MEQ/1,000 ML BAG IV SCH (00:31)
[2018-12-26] MEDS: PIPERACILLIN/TAZOBACTAM 3.375 GM in DEXTROSE 5% 100 ML IV SCH ×3 (01:38→18:21)
--- NOTE | 2018-12-26 07:19 | Progress Note ---
Date of Service December 26, 2018 Assessment & Plan (1) Ruptured appendix: cont IV atbx today, ask for possible visiting nurse, probable d/c home tomorrow- leave drains Subjective shun diet feels weak - expected Physical Exam Physical Exam: less distended, more bowel sounds Results & Data Vital Signs (Past 12 Hours) Vital Signs Temp Pulse Resp BP Pulse Ox 12/26/18 00:04 37 C 62 18 168/90 H 97
[2018-12-26] MEDS: DOCUSATE SODIUM/SENNA 50/8.6MG TAB PO SCH ×2 (08:47→20:56)
[2018-12-26] MEDS: HYDROCODONE/ACETAMOPHEN 5/325MG TAB PO PRN (10:24)
[2018-12-27] MEDS: PIPERACILLIN/TAZOBACTAM 3.375 GM in DEXTROSE 5% 100 ML IV SCH (01:43)
--- NOTE | 2018-12-27 06:46 | Discharge Summary ---
PRINCIPAL DIAGNOSIS: Ruptured appendix. PROCEDURES: The patient underwent laparoscopy and then open appendectomy with drainage of abscess. HISTORY OF PRESENT ILLNESS: The patient is a 63-year-old male presenting to the Emergency Room on late hours of 12/22/2018. Workup including CAT scan showed severe appendicitis. He was taken to the operating room on grain drier hours of 12/23/2018 where he underwent initial laparoscopy with findings of severe adhesions and ruptured appendix. He had an open appendectomy requiring significant dissection and drain placement. He has been kept on IV antibiotics. He was slow to advance his GI function, but gradually regained ability to eat and was kept on IV antibiotics. He progressed and is felt stable for discharge home today on 12/27/2018. His drains are in place. He is on oral antibiotics. He will be seen in the surgical clinic within 4-5 days.
[2018-12-27 08:31] LABS: Creatinine Clr Calc Pharmacy 86.1 ml/min; Est GFR (African American) 102.3; Est GFR (Non-African American) 88.3
[2018-12-27] MEDS: HYDROCODONE/ACETAMOPHEN 5/325MG TAB PO PRN (08:51)
[2018-12-27] MEDS: DOCUSATE SODIUM/SENNA 50/8.6MG TAB PO SCH (08:52)
== END 2018-12-27 10:35 | disposition home health service (06) | DRG 340 ==
LOC: ED 22:20 → OR 12-23 01:37 → 3W 12-23 01:37